=== PATIENT | male | born 1950 | race Caucasian/White ===

== ENCOUNTER → 2018-08-12 | Outpatient (CLI) | payer OTHER, MEDICARE | END | disposition home or self-care (01) | LOC: CFH 06:56 | PROVIDERS: ATTEND Family Medicine | DX: R07.9 Chest pain, unspecified (principal); I10 Essential (primary) hypertension; R06.02 Shortness of breath | CPT/HCPCS: 93306 ==

== ENCOUNTER 2019-05-06 06:31 | Emergency (ER) | payer MEDICARE ==
[~2019-05-06] VITALS: Ht 175.3 cm; Wt 94.1 kg
[2019-05-06] MEDS ORDERED: HYDROmorphone 1 MG/ML, 1ML VIAL ONE ×2 (06:49→07:45)
[2019-05-06] MEDS ORDERED: ONDANSETRON 2MG/ML, 2ML ONE (06:49)
[2019-05-06] MEDS: HYDROmorphone 2 MG/ML, 1ML IVPush PRN ×2 (06:51→08:08)
--- NOTE | 2019-05-06 06:54 | NUR ---
REPORT RECEIVED, ASSUMING CARE OF PT. URINE CUP PROVIDED TO PT WITH INSTRUCTIONS. PT WAS MEDICATED FOR PAIN/NAUSEA BY AUTOMATIC CLIPPER RN. AT BEDSIDE.
[2019-05-06] MEDS ORDERED: ONDANSETRON 2MG/ML, 2ML IVPush ONE (07:00)
[2019-05-06] MEDS ORDERED: SODIUM CHLORIDE FLUSH 10ML SYR IVF ONE (07:00)
--- NOTE | 2019-05-06 07:18 | NUR ---
PT GIVEN A URINE CUP AND IS ATTEMPTING TO PROVIDE A SAMPLE.
[2019-05-06 07:20] LABS: ALANINE AMINOTRANSFERASE 32 U/L (12-78); ANION GAP 9 mmol/L (5-15); BASOPHILS # (AUTO) 0.03 x10^3/uL (0-0.1); BASOPHILS % (AUTO) 0 % (0-1); CALCIUM 9.3 mg/dL (8.5-10.1); CHLORIDE 107 mmol/L (98-107); EOSINOPHILS # (AUTO) 0.02 x10^3/uL (0-0.4); EOSINOPHILS % (AUTO) 0 % (1-7); LYMPHOCYTES # (AUTO) 0.79 x10^3/uL (1-3.4); LYMPHOCYTES % (AUTO) 9 % (22-44); MD NO; MEAN CORPUSCULAR HEMOGLOBIN 27.7 pg (27.5-34.5); MEAN CORPUSCULAR HGB CONC 32.5 g/dL (33.2-36.2); MEAN CORPUSCULAR VOLUME 85.3 fL (81-97); MEAN PLATELET VOLUME 7.3 fL (7.4-10.4); MONOCYTES # (AUTO) 0.56 x10^3/uL (0.2-0.8); MONOCYTES % (AUTO) 6 % (2-9); NEUTROPHILS # (AUTO) 7.83 x10^3/uL (1.8-6.8); NEUTROPHILS % (AUTO) 85 % (42-75); PLATELET COUNT 228 x10^3/uL (130-400); RED BLOOD COUNT 5.97 x10^6/uL (4.38-5.82); RED CELL DISTRIBUTION WIDTH 16.2 % (9.4-14.8)
[2019-05-06 07:24] LABS: ALKALINE PHOSPHATASE 97 U/L (45-117); BILIRUBIN,TOTAL 0.6 mg/dL (0.2-1.0); CREATININE 1.12 mg/dL (0.7-1.3); TOTAL PROTEIN 7.9 g/dL (6.4-8.2); TROPONIN I < 0.015 ng/mL (0.000-0.045)
--- NOTE | 2019-05-06 07:30 | NUR ---
URINE COLLECTED AND SENT TO LAB.
[2019-05-06 08:02] LABS: CULTURE INDICATED? YES; MICROSCOPIC AUTO
[2019-05-06] MEDS ORDERED: OMNIPAQUE 350 MG/ML, 100ML BOTTLE ONE (08:06)
--- NOTE | 2019-05-06 08:18 | NUR ---
PT MEDICATED FOR PAIN WITH 2ND DOSE OF DILAUDID. PT STATES HE IS FINALLY FEELING SOME RELIEF AND HIS PAIN IS NOW A 6 INSTEAD OF AN 8. VSS. NAD.
[2019-05-06] MEDS ORDERED: METO-99 PO (08:23)
[2019-05-06] MEDS ORDERED: OMEP-110 PO (08:24)
[2019-05-06] MEDS ORDERED: TRAZ50TA66 PO (08:25)
[2019-05-06] MEDS ORDERED: CEFTRIAXONE PMX 1GM/50ML 50 ML ONE (08:32)
--- NOTE | 2019-05-06 08:37 | NUR ---
PT IS RUNNING ROCEPHIN. MEDICATION EDUCATION PROVIDED TO PT AND PT VERBALIZED UNDERSTANDING. VSS. OXYGEN REMOVED, PT O2 SATS ARE REMAINING STABLE.
[2019-05-06] MEDS ORDERED: CEFTRIAXONE PMX 1GM/50ML 50 ML IV ONE (09:00)
[2019-05-06 09:04] VITALS: BP 145/84
--- NOTE | 2019-05-06 09:05 | NUR ---
TASK RN: Patient/Caregiver given discharge instructions and they have confirmed that they understand the instructions. Patient ambulatory with steady gait. Patient's family to drive patient home for safe DC.
== END 2019-05-06 09:06 | disposition home or self-care (01) ==
LOC: ED 08:50
DX: N30.00 Acute cystitis without hematuria (principal); K59.00 Constipation, unspecified; R10.84 Generalized abdominal pain; I10 Essential (primary) hypertension; Z90.49 Acquired absence of other specified parts of digestive tract
CPT/HCPCS: 36415; 74177; 80053; 81001; 83690; 84484; 85025; 87086; 87147; 93005; 96365; 96375; 96376; 99284; J0696; J1170; J2405; Q9967

== ENCOUNTER 2019-10-09 09:55 | Outpatient (CLI) | payer MEDICARE ==
[~2019-10-09 09:55] MED LIST: METO-99 PO; OMEP-110 PO; TRAZ50TA66 PO
[2019-10-09 10:46] LABS: BASOPHILS # (AUTO) 0.03 x10^3/uL (0-0.1); BASOPHILS % (AUTO) 0 % (0-1); EOSINOPHILS # (AUTO) 0.06 x10^3/uL (0-0.4); EOSINOPHILS % (AUTO) 1 % (1-7); LYMPHOCYTES # (AUTO) 1.34 x10^3/uL (1-3.4); LYMPHOCYTES % (AUTO) 16 % (22-44); MD NO; MEAN CORPUSCULAR HEMOGLOBIN 26.7 pg (27.5-34.5); MEAN CORPUSCULAR HGB CONC 32.2 g/dL (33.2-36.2); MEAN CORPUSCULAR VOLUME 82.8 fL (81-97); MEAN PLATELET VOLUME 7.5 fL (7.4-10.4); MONOCYTES # (AUTO) 0.98 x10^3/uL (0.2-0.8); MONOCYTES % (AUTO) 11 % (2-9); NEUTROPHILS # (AUTO) 6.22 x10^3/uL (1.8-6.8); NEUTROPHILS % (AUTO) 72 % (42-75); PLATELET COUNT 273 x10^3/uL (130-400); RED BLOOD COUNT 6.19 x10^6/uL (4.38-5.82); RED CELL DISTRIBUTION WIDTH 15.3 % (9.4-14.8)
[2019-10-09 10:53] LABS: MICROSCOPIC AUTO
[2019-10-09 10:56] LABS: ALANINE AMINOTRANSFERASE 28 U/L (12-78); ALBUMIN 3.7 g/dL (3.4-5.0); ANION GAP 8 mmol/L (5-15); CHLORIDE 106 mmol/L (98-107); CREATININE 1.16 mg/dL (0.7-1.3)
[2019-10-09 10:58] LABS: ALKALINE PHOSPHATASE 87 U/L (45-117); BILIRUBIN,TOTAL 0.7 mg/dL (0.2-1.0); TOTAL PROTEIN 7.4 g/dL (6.4-8.2)
[2019-10-09] MEDS ORDERED: METO-95 PO (11:00)
[2019-10-09] MEDS ORDERED: TAMS-11 PO (11:00)
[2019-10-09] MEDS ORDERED: CHOL10003 PO (11:00)
[2019-10-09] MEDS ORDERED: GLUC1TAB27 PO (11:00)
[2019-10-09] MEDS ORDERED: OMEP20TA62 PO (11:00)
[2019-10-09] MEDS ORDERED: ASCO-96 PO (11:00)
[2019-10-09] MEDS ORDERED: CALC600T4 PO (11:00)
[2019-10-09] MEDS ORDERED: METH500T98 PO (11:00)
[2019-10-09] MEDS ORDERED: TRAZ50TA66 PO (11:00)
[2019-10-09] MEDS ORDERED: MULT-717 PO (11:00)
== END 2019-10-09 23:59 | disposition home or self-care (01) ==
LOC: STAR 09:55
PROVIDERS: ATTEND Urology
DX: Z01.818 Encounter for other preprocedural examination (principal); N50.3 Cyst of epididymis
CPT/HCPCS: 36415; 80053; 81001; 85025; 87086; 93005

== ENCOUNTER 2019-10-23 09:42 | Day surgery (SDC) | payer MEDICARE ==
[~2019-10-23] VITALS: Ht 175.3 cm; Wt 93.2 kg
[~2019-10-23 09:42] MED LIST changes: +ASCO-96 PO; +CALC600T4 PO; +CHOL10003 PO; +GLUC1TAB27 PO; +METH500T98 PO; +METO-95 PO; +MULT-717 PO; +OMEP20TA62 PO; +TAMS-11 PO
[2019-10-23 10:11] VITALS: BP 136/85
[2019-10-23] MEDS ORDERED: LACTATED RINGERS 1,000 ML IV SCH (10:13)
[2019-10-23] MEDS ORDERED: ACETAMINOPHEN 500 MG TABLET PO ONE (10:30)
[2019-10-23] MEDS ORDERED: GABAPENTIN 300 MG CAPSULE PO ONE (10:30)
[2019-10-23] MEDS ORDERED: BUPIVACAINE/PF 0.5% ONE (10:59)
[2019-10-23] MEDS ORDERED: OXYcodone 5 MG/5 ML ORAL.SOL UDC PO PRN (11:30)
[2019-10-23] MEDS ORDERED: PROMETHAZINE 25 MG/ML, 1ML IV PRN (11:30)
[2019-10-23] MEDS ORDERED: HYDROmorphone 1 MG/ML, 1ML INJ IVPush PRN (11:30)
[2019-10-23] MEDS ORDERED: LABETALOL 5MG/ML, 20ML IV PRN (11:30)
[2019-10-23] MEDS ORDERED: FENTANYL PF 100 MCG/2ML IV PRN (11:30)
[2019-10-23] MEDS ORDERED: hydrALAzine 20 MG/ML, 1ML IV PRN (11:30)
[2019-10-23] MEDS ORDERED: HALOPERIDOL 5 MG/ML IV PRN (11:30)
[2019-10-23] MEDS ORDERED: MEPERIDINE/PF 25MG/ML,1ML IVPush PRN (11:30)
[2019-10-23] MEDS ORDERED: FENTANYL PF 250 MCG/5ML ONE (11:32)
[2019-10-23] MEDS ORDERED: CEFAZOLIN 1,000 MG ONE (12:59)
[2019-10-23] MEDS ORDERED: DEXAMETHASONE 4 MG/ML, 1ML ONE (12:59)
[2019-10-23] MEDS ORDERED: ONDANSETRON 2MG/ML, 2ML ONE (12:59)
[2019-10-23] MEDS ORDERED: PROPOFOL 10 MG/ML, 20ML ONE (12:59)
== END 2019-10-23 16:00 | disposition home or self-care (01) ==
LOC: OR 09:42
PROVIDERS: ATTEND Urology
DX: N43.40 Spermatocele of epididymis, unspecified (principal); N43.3 Hydrocele, unspecified; L72.0 Epidermal cyst; N50.3 Cyst of epididymis; I10 Essential (primary) hypertension; K21.9 Gastro-esophageal reflux disease without esophagitis; Z72.89 Other problems related to lifestyle
CPT/HCPCS: 11421; 54840; 55040; 88305; J0690; J1100; J2405; J2704; J3010; J7120

== ENCOUNTER 2020-03-02 17:23 | Emergency (ER) | payer MEDICARE ==
[~2020-03-02] VITALS: Ht 175.3 cm; Wt 96.3 kg
[2020-03-02] MEDS ORDERED: MORPHINE SULFATE 4 MG/ML, 1ML ONE ×2 (17:46→18:25)
[2020-03-02] MEDS ORDERED: ONDANSETRON 2MG/ML, 2ML ONE (17:46)
[2020-03-02] MEDS: MORPHINE SULFATE 4 MG/ML, 1ML IVPush PRN ×2 (17:55→18:29)
[2020-03-02] MEDS ORDERED: MAALOX/HYOSCYAMINE/LIDOCAINE 45 ML BTL PO ONE (18:00)
[2020-03-02] MEDS ORDERED: OMNIPAQUE 350 MG/ML, 100ML BOTTLE ONE (18:00)
[2020-03-02] MEDS ORDERED: ONDANSETRON 2MG/ML, 2ML IVPush ONE (18:00)
[2020-03-02] MEDS ORDERED: SODIUM CHLORIDE FLUSH 10ML SYR IVF ONE (18:00)
[2020-03-02] MEDS ORDERED: SODIUM CHLORIDE 0.9% 1,000ML IVBOLUS ONE (18:00)
[2020-03-02 18:18] LABS: BASOPHILS # (AUTO) 0.07 x10^3/uL (0-0.1); BASOPHILS % (AUTO) 1 % (0-1); EOSINOPHILS # (AUTO) 0.11 x10^3/uL (0-0.4); EOSINOPHILS % (AUTO) 1 % (1-7); LYMPHOCYTES % (AUTO) 7 % (22-44); MD NO; MEAN CORPUSCULAR HEMOGLOBIN 26.6 pg (27.5-34.5); MEAN CORPUSCULAR HGB CONC 32.6 g/dL (33.2-36.2); MEAN CORPUSCULAR VOLUME 81.6 fL (81-97); MEAN PLATELET VOLUME 7.9 fL (7.4-10.4); MONOCYTES # (AUTO) 0.35 x10^3/uL (0.2-0.8); MONOCYTES % (AUTO) 3 % (2-9); NEUTROPHILS # (AUTO) 9.52 x10^3/uL (1.8-6.8); NEUTROPHILS % (AUTO) 88 % (42-75); PLATELET COUNT 250 x10^3/uL (130-400); RED BLOOD COUNT 5.87 x10^6/uL (4.38-5.82); RED CELL DISTRIBUTION WIDTH 16.4 % (9.4-14.8)
[2020-03-02] MEDS ORDERED: MAALOX/HYOSCYAMINE/LIDOCAINE 45 ML BTL ONE (18:18)
[2020-03-02 18:30] LABS: ALANINE AMINOTRANSFERASE 22 U/L (12-78); ALBUMIN 3.5 g/dL (3.4-5.0); ANION GAP 9 mmol/L (5-15); CALCIUM 8.7 mg/dL (8.5-10.1); CHLORIDE 105 mmol/L (98-107); CREATININE 1.12 mg/dL (0.7-1.3)
[2020-03-02 18:32] LABS: ALKALINE PHOSPHATASE 94 U/L (45-117); BILIRUBIN,TOTAL 0.5 mg/dL (0.2-1.0); TOTAL PROTEIN 7.2 g/dL (6.4-8.2)
--- NOTE | 2020-03-02 19:03 | NUR ---
REPORT FROM TARI ASSUMING CARE OF PT AT THIS TIME
--- NOTE | 2020-03-02 19:29 | NUR ---
PT REQ MORE PAIN MEDS, ERP MAX UPDATED. PER MD HOLD ON ADDITIONAL MEDS UNTIL CT READ IS BACK.
--- NOTE | 2020-03-02 19:59 | NUR ---
PT UP TO RESTROOM FOR URINE SAMPLE AT THIS TIME
--- NOTE | 2020-03-02 20:04 | NUR ---
URINE SENT TO LAB
[2020-03-02 20:15] LABS: MICROSCOPIC AUTO
[2020-03-02 20:58] VITALS: BP 158/82
[2020-03-02 21:01] LABS: TROPONIN I < 0.015 ng/mL (0.000-0.045)
--- NOTE | 2020-03-02 21:08 | NUR ---
ALL RESULTS BACK CHART UP FOR RECHECK
[2020-03-02] MEDS ORDERED: CEFDINIR 300 MG CAPSULE ONE (21:23)
[2020-03-02] MEDS ORDERED: ONDANSETRON ODT 4 MG ONE (21:23)
[2020-03-02] MEDS ORDERED: OXYcodone/APAP 5/325MG TABLET ONE (21:23)
[2020-03-02] MEDS ORDERED: OXYcodone/APAP 5/325MG TABLET PO ONE (21:30)
[2020-03-02] MEDS ORDERED: CEFDINIR 300 MG CAPSULE PO ONE (21:30)
[2020-03-02] MEDS ORDERED: ONDANSETRON ODT 4 MG PO ONE (21:30)
== END 2020-03-02 21:32 | disposition home or self-care (01) ==
LOC: ED 17:46
DX: R10.33 Periumbilical pain (principal); R11.0 Nausea; R10.84 Generalized abdominal pain; R94.31 Abnormal electrocardiogram [ECG] [EKG]; I10 Essential (primary) hypertension; Z90.49 Acquired absence of other specified parts of digestive tract
CPT/HCPCS: 36415; 74177; 80053; 81001; 83605; 83690; 84484; 85025; 87086; 87147; 93005; 96374; 96375; 96376; 99285; J2270; J2405; J7030; Q0162; Q9967